=== PATIENT | female | born 1995 | race Caucasian/White ===

== ENCOUNTER → 2020-06-13 11:21 | Outpatient (BNVA) | payer OTHER, SELFPAY | PROVIDERS: PCP Internal Medicine; Visit Provider Nurse Practitioner Family | DX: R07.9 Chest pain, unspecified (principal); R00.0 Tachycardia, unspecified; R00.2 Palpitations | CPT/HCPCS: 93005; 99212 ==

== ENCOUNTER → 2020-06-17 08:28 | Outpatient (REF) | payer OTHER, SELFPAY ==
--- NOTE | 2020-06-17 08:37 | CA_ITS ---
Acquisition Time: 2020-06-17 09:42:34 Total Exercise Time: 00:07:49 Test Indications: Chest Pain Medications: SEE CHART Protocol: MARINA Max HR: 190 BPM 95% of Pred: 198 BPM Max BP: 144/084 mmHG Max Work Load: 9.8 METS Exercise stress test with exercise 7 min 49 sec of Marina protocol, with report of sob and heaviness in chest, without arrythmia, with normotensive response and normal heart rate response to exercise, without EKG changes meeting criteria for ischemia. In recovery she reported some lightheadedness with gradual improvement and resolution. Test reviewed with Dr Ramirez Referred By: Gracie Manzano Overread By: GRACIE MANZANO
== END ==
LOC: HO.CARD 08:28
PROVIDERS: PCP Internal Medicine; Visit Provider Nurse Practitioner Family
DX: R07.9 Chest pain, unspecified (principal); R00.0 Tachycardia, unspecified; R00.2 Palpitations
CPT/HCPCS: 93017

== ENCOUNTER 2020-07-05 11:37 | Outpatient (REF) | payer OTHER, SELFPAY ==
[2020-07-05 11:57] LABS: COVID-19 Test Negative (Negative); IDNOW Serial# 55D5AD1C
== END 2020-07-05 11:38 | disposition home or self-care (01) ==
LOC: HO.EMPCOV 11:37
PROVIDERS: Visit Provider Internal Medicine
DX: Z20.828 Contact with and (suspected) exposure to other viral communicable diseases (principal)
CPT/HCPCS: 87635; C9803

== ENCOUNTER → 2020-07-19 09:28 | Outpatient (REF) | payer OTHER, SELFPAY ==
--- NOTE | 2020-07-19 09:32 | CA_ITS ---
Transthoracic Echocardiogram Patient (Last, First, Middle): Elio Whitt, Gender: Female Date of : 1995 Age: 24 Procedure Date: 07/19/2020 Procedure Type: Transthoracic Echocardiogram Location: OP Height: 160.02 cm Weight: 64.86 kg BSA: 1.68 m2 Heart Rate: bpm BP: 118 / 68 mmHg Weight Loss Sales Consultant: CHRIS Referring MD: Gracie Manzano [employer]ELOPER[employer] Symptoms: R07.9 - Chest pain, unspecified Study Quality: Good ECG Rhythm: Sinus Conclusions: - The left ventricular systolic function is normal. The visually estimated ejection fraction is between 55-60%. - No obvious valvular pathology seen on this study. Findings Left Ventricle Normal left ventricular cavity size. There is normal left ventricular wall thickness. The left ventricular systolic function is normal. The visually estimated ejection fraction is between 55-60%. There is no evidence of regional wall motion abnormalities. Diastolic function is normal for age. Right Ventricle Normal right ventricular cavity size and systolic function. Atria The left atrium is normal in size. The right atrium is normal in size. Aortic Valve There is a normal trileaflet aortic valve. There is no aortic valve stenosis. There is no aortic valve regurgitation. Mitral Valve The mitral valve appears normal. There is trace mitral valve regurgitation. There is no mitral valve stenosis. Pulmonic Valve The pulmonic valve was not well visualized. Tricuspid Valve Normal tricuspid valve structure. There is trace tricuspid valve regurgitation. The pulmonary artery systolic pressure is normal. Great Vessels The aortic annulus, sinuses of valsalva, asc aorta, and aortic arch are normal in size. Venous The inferior vena cava is normal in size and collapses greater than 50% with inspiration. Pericardium/Pleural There is no evidence of pericardial effusion. Prior Study Comparison No prior study available for comparison. Recommendations, Care & Conclusions No obvious valvular pathology seen on this study. Measurements 2D Linear Measurements RVIDd: 2.24 RVIDd Index: 1.33 IVSd: 0.69 0.6-0.9/0.6-1.0 cm LVIDd: 4.32 3.9-5.3/4.2-5.9 cm LVIDd Index: 2.57 2.4-3.2/2.2-3.1 cm/m2 LVIDs: 3.08 2.0-3.6 cm LVPWd: 0.99 0.7-1.1 cm Ao Root: 2.30 2.1-3.5 cm LA Diam: 2.70 2.7-3.8/3.0-4.0 cm LAIDs Index: 1.61 1.5-2.3 cm/m2 LV Mass: 140.68 67-162/88-224 g LV Mass Index: 83.74 43-95/49-115 g/m2 LVOT Diam: 2.10 3.0+(-)1.3 cm 2D Systolic Function EF 4C: 60.30 >55% EF 2C: 61.20 >55% EF BiP: 60.70 >55% Mitral Valve E'Lateral: 17.30 Aortic Valve AoV Pk Reuben: 1.18 AoV Mn Reuben: 0.82 AoV VTI: 0.20 AoV Pk Grad: 6.00 Aov Mn Grad: 3.00 PARAS Cont.VTI: 2.22 LVOT LVOT Pk Reuben: 0.81 LVOT Mn Reuben: 0.57 LVOT VTI: 0.13 LVOT Pk Grad: 3.00 LVOT Mn Grad: 1.00 LVOT Diam: 2.10 LVOT Area: 3.46 Diastolic Function E' Laterial: 17.30 Tricuspid Valve TR Pk Reuben: 2.08 TR Pk Grad: 17.00 RA Press: 3.00 RVSP: 20.00 Great Vessels Aorta Ao Root-2D: 2.30 2.0-3.7 cm Ao Asc: 2.50 2.1-3.4 cm Ao Arch: 2.30 Updated in Other Vendor System with Status of Final Farnk Peña MD electronically signed on 07/19/2020 5:33:08 PM with status of Final
== END ==
LOC: HO.CARD 09:28
PROVIDERS: Visit Provider Nurse Practitioner Family
DX: R07.9 Chest pain, unspecified (principal); R00.0 Tachycardia, unspecified
CPT/HCPCS: 93306

== ENCOUNTER 2020-08-01 10:00 | Outpatient (REF) | payer OTHER, SELFPAY ==
[2020-08-01 10:21] LABS: COVID-19 Test Negative (Negative)
== END 2020-08-01 10:01 | disposition home or self-care (01) ==
LOC: HO.EMPCOV 10:00
PROVIDERS: PCP Internal Medicine; Visit Provider Internal Medicine
DX: Z20.828 Contact with and (suspected) exposure to other viral communicable diseases (principal)
CPT/HCPCS: 87635; C9803

== ENCOUNTER 2020-08-02 16:00 | Outpatient (REF) | payer OTHER, SELFPAY ==
[2020-08-02 17:31] LABS: TSH reflex Free T4 1.01 mIU/mL (0.32-4.0)
== END 2020-08-02 16:01 | disposition home or self-care (01) ==
LOC: HO.LAB 16:00
PROVIDERS: PCP Internal Medicine; Visit Provider Nurse Practitioner Family
DX: R00.2 Palpitations (principal); R07.9 Chest pain, unspecified; R00.0 Tachycardia, unspecified
CPT/HCPCS: 84443

== ENCOUNTER 2020-08-25 13:10 | Outpatient (REF) | payer OTHER, SELFPAY ==
[2020-08-25 13:33] LABS: COVID-19 Test Negative (Negative)
== END 2020-08-25 13:11 | disposition home or self-care (01) ==
LOC: HO.LAB 13:10
PROVIDERS: Visit Provider Internal Medicine
DX: Z20.822 Contact with and (suspected) exposure to COVID-19 (principal)
CPT/HCPCS: 36415; 87635; C9803

== ENCOUNTER 2020-09-21 14:44 | Outpatient (REF) | payer OTHER, SELFPAY ==
[2020-09-21 15:16] LABS: COVID-19 Test Negative (Negative)
== END 2020-09-21 14:45 | disposition home or self-care (01) ==
LOC: HO.EMPCOV 14:44
PROVIDERS: Visit Provider Internal Medicine
DX: Z20.822 Contact with and (suspected) exposure to COVID-19 (principal)
CPT/HCPCS: 36415; 87635; C9803

== ENCOUNTER 2020-10-13 16:30 | Outpatient (REF) | payer MEDICAID, SELFPAY ==
--- NOTE | ~2020-10-13 | US_ITS ---
EXAMINATION: US PELVIS, LIMITED/FOLLOW UP CLINICAL INFORMATION: Status post liposuction with BBL procedure 04/24/2020. COMPARISON: None TECHNIQUE: Limited imaging to the anterior abdomen was performed. FINDINGS: There are small areas of fluid collection seen in the buttocks. Left lateral buttock small collection measures 1.2 x 0.5 x 0.6 cm. It is approximately 1.17 cm deep to the skin surface. Second lesion along the left lateral buttock lateral to the collection described above, measures 0.9 x 0.2 x 0.7 cm an approximate 1.45 cm deep to the skin. The third lesion in the right buttock measures 1.28 x 0.6 cm. It is approximate 1.7 cm deep from the skin. Imaging through the lower anterior pelvis reveals no fluid collection. US/US pelvic limited IMPRESSION: 2 small fluid collections in the left buttock and a similar small fluid collection of the right buttock. There is no fluid collection seen in the anterior lower pelvis.
[2020-10-14 04:27] LABS: HIV AB/AG Nonreactive (Nonreactive); HIV Num 1 0.07 S/CO (0.00-0.99)
[2020-10-14 04:44] LABS: ~HepC Num1 0.13 S/CO (0.00-0.79); ~Hepatitis C Antibody Nonreactive (Nonreactive)
[2020-10-20 13:10] LABS: RPR Quantitative Non-Reactive (Nonreactive)
[2020-10-20 13:11] LABS: T.Pallidum Particle Agg Test Non-Reactive (Nonreactive)
== END 2020-10-13 16:31 | disposition home or self-care (01) ==
LOC: HO.US 16:30
PROVIDERS: PCP General Practice; Visit Provider General Practice
DX: R30.0 Dysuria (principal); T81.49XS Infection following a procedure, other surgical site, sequela
CPT/HCPCS: 36415; 76857; 86592; 86780; 86803; 87389

== ENCOUNTER 2020-10-18 08:32 | Outpatient (REF) | payer OTHER, SELFPAY ==
[2020-10-18 08:52] LABS: COVID-19 Test Negative (Negative)
== END 2020-10-18 08:33 | disposition home or self-care (01) ==
LOC: HO.EMPCOV 08:32
PROVIDERS: Visit Provider Internal Medicine
DX: Z20.822 Contact with and (suspected) exposure to COVID-19 (principal)
CPT/HCPCS: 36415; 87635; C9803

== ENCOUNTER 2022-03-25 13:37 | Emergency (ER) | payer OTHER, MEDICAID, SELFPAY | END 2022-03-25 14:32 | disposition left against medical advice (07) | PROVIDERS: Emergency Provider Emergency Medicine | DX: R07.0 Pain in throat (principal) ==

== ENCOUNTER 2023-06-17 16:10 | Outpatient (REF) | payer MEDICAID, SELFPAY ==
[2023-06-17 17:29] LABS: MANUAL DIFF FLAG NO
[2023-06-17 17:40] LABS: Basophils Absolute Auto 0.1 X10*3/uL (0.0-0.2); Basophils Percent Auto 0.7 % (0-2); Eosinophils Absolute Auto 0.1 X10*3/uL (0.0-0.4); Eosinophils Percent Auto 0.7 % (0-4); Hematocrit 41.5 % (37.0-47.0); Hemoglobin 13.5 g/dl (12.0-16.0); Imm Gran Abs Auto 0.01 X10*3/uL (0.00-0.03); Imm Gran Pct Auto 0.1 % (0.0-0.4); Lymphocytes Absolute Auto 2.9 X10*3/uL (1.2-4.9); Lymphocytes Percent Auto 41.5 % (20-40); Mean Corpuscular HGB Conc 32.5 g/dl (31.0-35.0); Mean Corpuscular Volume 86.1 fL (80.0-98.0); Mean Platelet Volume 10.7 fL (9.4-12.3); Monocytes Absolute Auto 0.6 X10*3/uL (0.1-1.2); Monocytes Percent Auto 7.9 % (2-11); Neutrophils Absolute Auto 3.5 x10*3/uL (2.0-8.3); Neutrophils Percent Auto 49.1 % (45-73); Platelet Count 243 X10*3/uL (160-400); Red Blood Count 4.82 X10*6/uL (4.20-5.50); Red Cell Distribution Width 12.4 % (11.0-16.0); White Blood Count 7.1 X10*3/uL (4.8-10.8)
[2023-06-17 18:38] LABS: HCG Quantitative < 2 mIU/mL
[2023-06-17 18:50] LABS: TSH reflex Free T4 1.59 uIU/mL (0.32-4.0); Vitamin D 25-OH Total 20.2 ng/mL (>30)
== END 2023-06-17 16:11 | disposition home or self-care (01) ==
LOC: HO.HHCL 16:10
PROVIDERS: Visit Provider General Practice
DX: R53.83 Other fatigue (principal); N89.8 Other specified noninflammatory disorders of vagina
CPT/HCPCS: 36415; 81513; 82306; 84443; 84702; 85025; 87480; 87510; 87660